=== PATIENT | female | born 1945 | race Caucasian/White ===

== ENCOUNTER 2017-05-23 21:39 | Emergency (ER) | payer MEDICARE, OTHER ==
--- NOTE | 2017-05-23 22:32 | ERPHSYRPT ---
- History of Present Illness Time Seen by Provider: 05/23/17 22:29 Source: patient Exam Limitations: no limitations Patient Subjective Stated Complaint: pt states her blood pressure has been elevated intermittently since last night. spb 170 at home Triage Nursing Assessment: pt alert and oriented, asnwers questions approp. sitting up ons danyell of bed, no distress noted. respirations nonlabored. pt ambulatory with steady gait noted. Physician History: This is 71-year-old white female she arrives with complaint of having a high blood pressure at home for 3 days. She states she's had occasional pain on the top of her head. She is really in no distress at this time she has no dizziness no movement disorders she is not vomiting no nausea. Past medical history includes a breast cancer. Past surgical history bilateral mastectomy. Social history patient denies tobacco alcohol or illicit drug use Timing/Duration: day(s) (3 days) Severity: mild Modifying Factors: Worsens With: cold therapy, eating, immobilization, medication, movement, rest, acetaminophen, ibuprofen, nothing Associated Symptoms: other (occasional pain on the top of her head), No nausea, No vomiting, No abdominal pain, No shortness of breath, No heartburn, No diaphoresis, No cough, No chills, No chest pain, No fever, No headaches, No loss of appetite, No malaise, No rash, No syncope, No seizure, No weakness Allergies/Adverse Reactions: No Known Drug Allergies Allergy (Verified 05/23/17 22:27) Hx Tetanus, Diphtheria Vaccination/Date Given: No (unsure) Hx Influenza Vaccination/Date Given: No Hx Pneumococcal Vaccination/Date Given: No Immunizations Up to Date: No - Review of Systems Constitutional: No Fever, No Chills Eyes: No Symptoms Ears, Nose, & Throat: No Symptoms Respiratory: No Cough, No Dyspnea Cardiac: No Chest Pain, No Edema, No Syncope Abdominal/Gastrointestinal: No Abdominal Pain, No Nausea, No Vomiting, No Diarrhea Genitourinary Symptoms: No Dysuria Musculoskeletal: No Symptoms, No Back Pain, No Neck Pain Skin: No Rash Neurological: No Dizziness, No Focal Weakness, No Sensory Changes Psychological: No Symptoms Endocrine: No Symptoms - Past Medical History Cardiac History: Hypertension Other Medical History: hx of breast ca - Past Surgical History Past Surgical History: Yes Gastrointestinal: Cholecystectomy Female Surgical History: Mastectomy Other Surgical History: bilat mastectomy - Social History Smoking Status: Former smoker Exposure to second hand smoke: No Drug Use: none Patient Lives Alone: Yes - Nursing Vital Signs Nursing Vital Signs: Initial Vital Signs Temperature 97.8 F 05/23/17 22:17 Pulse Rate 69 05/23/17 22:17 Respiratory Rate 16 05/23/17 22:17 Blood Pressure 170/101 05/23/17 22:17 O2 Sat by Pulse Oximetry 96 05/23/17 22:17 Pain Scale Pain Intensity 0 - Physical Exam General Appearance: no apparent distress, alert Eye Exam: PERRL/EOMI, eyes nml inspection Ears, Nose, Throat Exam: normal ENT inspection, TMs normal, pharynx normal, moist mucous membranes Neck Exam: normal inspection, non-tender, supple, full range of motion Respiratory Exam: normal breath sounds, lungs clear, No respiratory distress Cardiovascular Exam: regular rate/rhythm, normal heart sounds, normal peripheral pulses Gastrointestinal/Abdomen Exam: soft, normal bowel sounds, No tenderness, No mass Back Exam: normal inspection, normal range of motion, No CVA tenderness, No vertebral tenderness Extremity Exam: normal inspection, normal range of motion, pelvis stable Neurologic Exam: alert, oriented x 3, cooperative, recycling tech II-XII nml as tested, normal mood/affect, nml cerebellar function, nml station & gait, sensation nml, No motor deficits Skin Exam: normal color, warm, dry, No rash Lymphatic Exam: No adenopathy SpO2 Interpretation: normal (96%) SpO2: 96 Oxygen Delivery: Room Air - Course Nursing assessment & vital signs reviewed: Yes EKG Interpreted by Me: RATE, Sinus Rhythm, NORMAL AXIS, Other (EKG, normal sinus rhythm, 62 bpm, normal axis, no acute ST or T wave changes, normal EKG) Ordered Tests: Active Orders 24 hr Category Date Time Status EKG-ER Only STAT Care 05/23/17 22:29 Active IV Insertion STAT Care 05/23/17 22:29 Active CBC W DIFF Stat Lab 05/23/17 23:25 Completed CMP Stat Lab 05/23/17 23:25 Completed CULTURE,URINE Stat Lab 05/23/17 22:55 Received UA W/ MICROSCOPIC Stat Lab 05/23/17 22:55 Completed Medication Summary Discontinued Medications Generic Name Dose Route Start Last Admin Trade Name Freq PRN Reason Stop Dose Admin Hydrochlorothiazide 25 mg 05/24/17 00:47 Hydrodiuril 25 Mg PO 05/24/17 00:48 DAILY STA Lab/Rad Data: Laboratory Result Diagrams 05/23/17 23:25 05/23/17 23:25 Laboratory Results 05/23/17 05/23/17 05/23/17 Range/Units 23:25 23:25 22:55 WBC 5.6 (4.0-10.5) K/mm3 RBC 4.30 (4.1-5.4) M/mm3 Hgb 13.1 (12.0-16.0) gm/dl Hct 40.9 (35-47) % MCV 95.1 (78-100) fl MCH 30.5 (26-32) pg MCHC 32.0 (32-36) g/dl RDW 13.9 (11.5-14.0) % Plt Count 258 (150-450) K/mm3 MPV 9.2 (6-9.5) fl Gran % 54.2 (36.0-66.0) % Lymphocytes % 32.6 (24.0-44.0) % Monocytes % 10.7 (0.0-12.0) % Eosinophils % 2.1 (0.00-5.0) % Basophils % 0.4 (0.0-0.4) % Basophils # 0.02 (0-0.4) Sodium 141 (137-145) mmol/L Potassium 4.3 (3.5-5.1) mmol/L Chloride 103 (98-107) mmol/L Carbon Dioxide 29 (22-30) mmol/L Anion Gap 13.3 (5-15) MEQ/L BUN 18 H (7-17) mg/dL Creatinine 0.84 (0.52-1.04) mg/dL Estimated GFR > 60 ML/MIN Glucose 97 (74-106) mg/dL Calcium 9.0 (8.4-10.2) mg/dL Total Bilirubin 0.50 (0.2-1.3) mg/dL AST 30 (14-36) U/L ALT 26 (0-35) U/L Alkaline Phosphatase 71 (38-126) U/L Serum Total Protein 7.1 (6.3-8.2) g/dL Albumin 4.1 (3.5-5.0) g/dL Ur Collection Type CLEAN CATCH Urine Color YELLOW (YELLOW) Urine Appearance CLEAR (CLEAR) Urine pH 6.0 (5-6) Ur Specific [place] 1.015 (1.005-1.025) Urine Protein NEGATIVE (Negative) Urine Ketones NEGATIVE (NEGATIVE) Urine Blood NEGATIVE (0-5) Bk/ul Urine Nitrite NEGATIVE (NEGATIVE) Urine Bilirubin NEGATIVE (NEGATIVE) Urine Urobilinogen NORMAL (0-1) mg/dL Ur Leukocyte Esterase 1+ (NEGATIVE) Urine Microscopic WBC 15-25 (0-5) /HPF Ur Epithelial Cells RARE (FEW) /HPF Urine Bacteria RARE (NEGATIVE) /HPF Urine Culture Reflexed YES (NO) Urine Glucose NEGATIVE (NEGATIVE) mg/dL Specimen Received 05/23/17 2300 - Progress Progress: improved Progress Note: 05/24/17 00:51 71-year-old white female arrives with complaint that her blood pressure is been up for the last several days she states she occasionally has pain on the top of her head. I have done laboratory work on this lady EKG normal sinus rhythm [address] or T wave changes CBC is normal chemistry essentially normal. Urine shows 15-25 white cells per high-power field nitrite is negative. Patient's blood pressure has been running around 172 over high 90s for the diastolic. Last pressure was 102 diastolic. Patient in no acute distress. Will go ahead and place patient on hydrochlorothiazide 25 mg orally daily give the first dose today. I have offered the patient a CT of her head she does not want this. I have also offered to place patient on antibiotics secondary to the white cells in her urine she says she does not want placed on antibiotics Will go ahead and culture the patient's urine and if significant growth occurs she will be contacted and will need to be placed on an antibiotic. Patient has been informed that she needs to contact her family doctor tomorrow and schedule an appointment for follow-up on her blood pressures. 05/24/17 00:56 - Departure Time of Disposition: 00:54 Departure Disposition: Home Clinical Impression: Hypertension Qualifiers: Hypertension type: essential hypertension Qualified Code(s): I10 - Essential ( primary) hypertension Condition: Fair Critical Care Time: No Referrals: CLARISSA VALDIVIA MD [Primary Care Provider] - Additional Instructions: Return home. Rest. Hydrochlorothiazide 25 mg orally daily. Follow-up with your family doctor call tomorrow and arrange follow-up. Return for acute distress or for severe symptoms. He had some white blood cells in her urine cultures are pending. You will be contacted if you have significant growth. Return for acute distress or for severe symptoms. Prescriptions: Hydrochlorothiazide 25 mg [hydroDIURIL 25 MG] 25 mg PO DAILY #10 tablet
[2017-05-23 23:39] LABS: BASOPHIL % 0.4 % (0.0-0.4); Basophil (Absolute #) 0.02 (0-0.4); Eosinophil % 2.1 % (0.00-5.0); Eosinophil (Absolute #) 0.12 (0-0.5); Granulocyte Absolute (ANC) 3.04 (1.4-6.9); Granulocytes % 54.2 % (36.0-66.0); Hematocrit 40.9 % (35-47); Hemoglobin 13.1 gm/dl (12.0-16.0); Lymphocyte (Absolute #) 1.83 (1.0-4.6); Lymphocytes % 32.6 % (24.0-44.0); Mean Cell Volume 95.1 fl (78-100); Mean Corpuscular Hemoglobin 30.5 pg (26-32); Mean Platelet Volume 9.2 fl (6-9.5); Monocytes % 10.7 % (0.0-12.0); Platelet Count 258 K/mm3 (150-450); Red Cell Distribution Width 13.9 % (11.5-14.0); White Blood Count 5.6 K/mm3 (4.0-10.5)
[2017-05-23 23:57] LABS: ALBUMIN 4.1 g/dL (3.5-5.0); ALKALINE PHOSPHATASE 71 U/L (38-126); ANION GAP 13.3 MEQ/L (5-15); BLOOD UREA NITROGEN 18 mg/dL (7-17); CHLORIDE 103 mmol/L (98-107); Carbon Dioxide 29 mmol/L (22-30); Creatinine 1 0.84 mg/dL (0.52-1.04); Glucose 97 mg/dL (74-106); Potassium 4.3 mmol/L (3.5-5.1); SGOT/AST 30 U/L (14-36); SGPT/ALT 26 U/L (0-35); SODIUM 141 mmol/L (137-145); Total Protein 7.1 g/dL (6.3-8.2)
[2017-05-24 00:06] VITALS: O2SAT 96
[2017-05-24 00:33] LABS: Appearance CLEAR (CLEAR); Bilirubin NEGATIVE (NEGATIVE); Blood NEGATIVE Ery/ul (0-5); Glucose NEGATIVE (NEGATIVE); Ketones NEGATIVE (NEGATIVE); Leukocyte Esterase 1+ (NEGATIVE); Nitrite NEGATIVE (NEGATIVE); Protein,Urine Dip NEGATIVE (Negative); Specific Gravity 1.015 (1.005-1.025); Urobilinogen NORMAL mg/dL (0-1); WBC 15-25 /HPF (0-5)
[2017-05-24 00:34] LABS: Bacteria RARE /HPF (NEGATIVE); Epithelial Cells RARE /HPF (FEW)
[2017-05-24] MEDS ORDERED: hydroDIURIL 25 MG PO STA (00:47)
[2017-05-24 01:04] VITALS: BP 172/93; PULSE 65
== END 2017-05-24 01:32 | disposition home or self-care (01) ==
LOC: ED 21:39
DX: I10 Essential (primary) hypertension (principal); R51 Headache; R82.99 Other abnormal findings in urine
CPT/HCPCS: 36000; 36415; 80053; 81000; 81002; 85025; 87086; 93005; 99283; A9270-GY

== ENCOUNTER 2021-01-05 13:01 | Emergency (ER) | payer MEDICARE, OTHER ==
--- NOTE | 2021-01-05 13:40 | ERPHSYRPT ---
- History of Present Illness Time Seen by Provider: 01/05/21 13:20 Source: patient Exam Limitations: no limitations Patient Subjective Stated Complaint: Patient states she has been having high blood pressure readings on her home monitor at home for the past few days. She i ndicates that she took herself off of her coreg and HCTZ about a month ago because her B/P had been doing so well but now it is running high again. She phoned her biomathematician, Dr. Casillas today and was instructed to take her HCTZ. She states she has an appointment with Dr. Casillas next week for follow-up. Also states she gets dizzy when rising. Triage Nursing Assessment: Patient ambulated back to ED. She is alert and oriented and able to answer questions appropriately. No SOB noted. Patient denies chest pain or headache. PERRL. B/P reading WNL upon arrival to ED. Regular heart rate. [place] WNL without difficulties. Physician History: Patient is a 75-year-old female presents to our ED for evaluation of elevated blood pressure per home reading and intermittent dizziness. Patient states that she has a history of high blood pressure. Patient has been checking her blood pressure regularly. Last month she observed her blood pressure to continually be normal. Patient decided to stop taking her Coreg and hydrochlorothiazide 1 month ago as she was feeling well and did not think it was no longer necessary. However patient checked her blood pressure last night and found it to be elevated at a systolic of 200. Blood pressure was elevated this morning as well. She called her biomathematician who advised her to take her hydrochlorothiazide. Patient is here due to her high blood pressure and intermittent dizziness. No chest pain. No shortness of breath. No nausea vomiting or diaphoresis. No numbness tingling or weakness. No headache. Symptoms are mild to moderate in intensity. No specific worsening improving factors. Patient voices no other complaints or concerns at this time. Timing/Duration: yesterday Severity: moderate Modifying Factors: Improves With: movement (Movement cause patient to feel mildly dizzy) Associated Symptoms: other (Dizziness), No shortness of breath, No diaphoresis, No cough, No headaches, No syncope, No seizure, No weakness Allergies/Adverse Reactions: No Known Drug Allergies Allergy (Verified 01/05/21 13:30) Hx Tetanus, Diphtheria Vaccination/Date Given: No (unsure) Hx Influenza Vaccination/Date Given: No Hx Pneumococcal Vaccination/Date Given: No Immunizations Up to Date: Yes Travel Risk - International Travel Have you traveled outside of the country in past 3 weeks: No - Coronavirus Screening Are you exhibiting any of the following symptoms?: No Close contact with a COVID-19 positive Pt in past 14-21 Days: No - Vaccine Status Have you recieved a Covid-19 vaccination: No - Review of Systems Constitutional: No Symptoms, No Fever, No Chills Eyes: No Symptoms Ears, Nose, & Throat: No Symptoms Respiratory: No Symptoms, No Cough, No Dyspnea Cardiac: No Symptoms, No Chest Pain, No Edema, No Syncope Abdominal/Gastrointestinal: No Symptoms, No Abdominal Pain, No Nausea, No Vomiting, No Diarrhea Genitourinary Symptoms: No Symptoms, No Dysuria Musculoskeletal: No Symptoms, No Back Pain, No Neck Pain Skin: No Symptoms, No Rash Neurological: No Symptoms, No Dizziness, No Focal Weakness, No Sensory Changes Psychological: No Symptoms Endocrine: No Symptoms Hematologic/Lymphatic: No Symptoms Immunological/Allergic: No Symptoms All Other Systems: Reviewed and Negative - Past Medical History Pertinent Past Medical History: Yes Neurological History: No Pertinent History Cardiac History: Hypertension Respiratory History: No Pertinent History Endocrine Medical History: Other Musculoskeletal History: Osteoarthritis Other Medical History: BREAST CA WITH DOUBLE MASTECTOMY 2011. DID NOT DO ANY CHEMO AT THAT TIME. CANCER RETURNED 5 YEARS LATERS. HAS BEEN SEEING DR. LEON FOR MONTHLY INJECTIONS. - Past Surgical History Past Surgical History: Yes Gastrointestinal: Cholecystectomy Female Surgical History: Mastectomy Other Surgical History: bilat mastectomy - Social History Smoking Status: Former smoker Exposure to second hand smoke: No Drug Use: none Patient Lives Alone: Yes - Female History Hx Now: No - Nursing Vital Signs Nursing Vital Signs: Initial Vital Signs Temperature 98 F 01/05/21 13:13 Pulse Rate 72 01/05/21 13:13 Respiratory Rate 21 01/05/21 13:13 Blood Pressure 154/72 01/05/21 13:13 O2 Sat by Pulse Oximetry 96 01/05/21 13:13 Pain Scale Pain Intensity 0 - Physical Exam General Appearance: no apparent distress, alert Eye Exam: PERRL/EOMI, eyes nml inspection Ears, Nose, Throat Exam: normal ENT inspection, TMs normal, pharynx normal, moist mucous membranes Neck Exam: normal inspection, non-tender, supple, full range of motion Respiratory Exam: normal breath sounds, lungs clear, airway intact, No respiratory distress Cardiovascular Exam: regular rate/rhythm, normal heart sounds, normal peripheral pulses Gastrointestinal/Abdomen Exam: soft, normal bowel sounds, No tenderness, No mass Back Exam: normal inspection, normal range of motion, No CVA tenderness, No vertebral tenderness Extremity Exam: normal inspection, normal range of motion, pelvis stable Neurologic Exam: alert, oriented x 3, cooperative, normal mood/affect, nml cerebellar function, nml station & gait, sensation nml, No motor deficits Skin Exam: normal color, warm, dry, No rash Lymphatic Exam: No adenopathy SpO2 Interpretation: normal SpO2: 96 O2 Delivery: Room Air - Course Nursing assessment & vital signs reviewed: Yes EKG Interpreted by Me: RATE (66), Sinus Rhythm, NORMAL AXIS, NORMAL INTERVALS - CT Exams Head CT Interpretation: Tele-radiologist Report (Age-appropriate global atrophy and mild periventricular degenerative microischemia bilaterally. No acute intracranial hemorrhage abnormal extra-axial fluid collection or mass-effect. Fourth ventricle is midline without hydrocephalus. Faust-white matter differentiation preserved. Nonacute senile b) Ordered Tests: Active Orders 24 hr Category Date Time Status Centrifugal Casting Machine Operator STAT Care 01/05/21 13:35 Active EKG-ER Only STAT Care 01/05/21 13:34 Active IV Insertion STAT Care 01/05/21 13:34 Active Pulse Oximetry (ED) STAT Care 01/05/21 13:34 Active HEAD WITHOUT CONTRAST [CT] Stat Exams 01/05/21 13:36 Completed CBC W DIFF Stat Lab 01/05/21 13:34 Completed CMP Stat Lab 01/05/21 13:34 Completed CULTURE,URINE Stat Lab 01/05/21 14:21 Received TROPONIN Q3H Lab 01/05/21 13:45 Completed TROPONIN Q3H Lab 01/05/21 15:40 Completed TROPONIN Q3H Lab 01/05/21 19:45 Ordered TROPONIN Q3H Lab 01/05/21 22:45 Ordered TROPONIN Q3H Lab 01/06/21 01:45 Ordered UA W/RFX UR CULTURE Stat Lab 01/05/21 14:21 Completed Medication Summary Discontinued Medications Generic Name Dose Route Start Last Admin Trade Name Freq PRN Reason Stop Dose Admin Ceftriaxone Sodium/Dextrose 1 g in 50 mls @ 100 mls/hr 01/05/21 15:32 01/05/21 16:15 Rocephin 1 Gm-D5w 50 Ml Bag IV 01/05/21 16:01 Infused STAT STA Infusion Ceftriaxone Sodium/Dextrose Confirm 01/05/21 15:44 Rocephin 1 Gm-D5w 50 Ml Bag Administered 01/05/21 15:45 Dose 1 g in 50 mls @ ud IV .STK-MED ONE Lab/Rad Data: Laboratory Result Diagrams 01/05/21 13:34 01/05/21 13:34 Laboratory Results 01/05/21 01/05/21 01/05/21 Range/Units 15:40 14:21 13:45 WBC (4.0-10.5) K/mm3 RBC (4.1-5.4) M/mm3 Hgb (12.0-16.0) gm/dl Hct (35-47) % MCV (78-100) fl MCH (26-32) pg MCHC (32-36) g/dl RDW (11.5-14.0) % Plt Count (150-450) K/mm3 MPV (7.5-11.0) fl Gran % (36.0-66.0) % Eos # (Auto) (0-0.5) Absolute Lymphs (auto) (1.0-4.6) Absolute Monos (auto) (0.0-1.3) Lymphocytes % (24.0-44.0) % Monocytes % (0.0-12.0) % Eosinophils % (0.00-5.0) % Basophils % (0.0-0.4) % Absolute Granulocytes (1.4-6.9) Basophils # (0-0.4) Sodium (137-145) mmol/L Potassium (3.5-5.1) mmol/L Chloride (98-107) mmol/L Carbon Dioxide (22-30) mmol/L Anion Gap (5-15) MEQ/L BUN (7-17) mg/dL Creatinine (0.52-1.04) mg/dL Estimated GFR ML/MIN Glucose (74-106) mg/dL Calcium (8.4-10.2) mg/dL Total Bilirubin (0.2-1.3) mg/dL AST (14-36) U/L ALT (0-35) U/L Alkaline Phosphatase (38-126) U/L Troponin I < 0.012 < 0.012 (0.000-0.034) ng/mL Serum Total Protein (6.3-8.2) g/dL Albumin (3.5-5.0) g/dL Urine Color STRAW (YELLOW) Urine Appearance CLEAR (CLEAR) Urine pH 5.0 (5-6) Ur Specific [place] 1.012 (1.005-1.025) Urine Protein NEGATIVE (Negative) Urine Ketones NEGATIVE (NEGATIVE) Urine Blood NEGATIVE (0-5) Bk/ul Urine Nitrite NEGATIVE (NEGATIVE) Urine Bilirubin NEGATIVE (NEGATIVE) Urine Urobilinogen NEGATIVE (0-1) mg/dL Ur Leukocyte Esterase MODERATE (NEGATIVE) Urine WBC (Auto) 26-50 (0-5) /HPF Urine RBC (Auto) NONE (0-2) /HPF Urine Bacteria (Auto) NONE (NEGATIVE) /HPF Urine Mucus (Auto) SLIGHT (NEGATIVE) /HPF Urine Culture Reflexed YES (NO) Urine Glucose NEGATIVE (NEGATIVE) mg/dL 01/05/21 01/05/21 Range/Units 13:34 13:34 WBC 6.1 (4.0-10.5) K/mm3 RBC 4.31 (4.1-5.4) M/mm3 Hgb 13.1 (12.0-16.0) gm/dl Hct 41.5 (35-47) % MCV 96.3 (78-100) fl MCH 30.4 (26-32) pg MCHC 31.6 L (32-36) g/dl RDW 13.5 (11.5-14.0) % Plt Count 276 (150-450) K/mm3 MPV 8.9 (7.5-11.0) fl Gran % 61.2 (36.0-66.0) % Eos # (Auto) 0.13 (0-0.5) Absolute Lymphs (auto) 1.68 (1.0-4.6) Absolute Monos (auto) 0.54 (0.0-1.3) Lymphocytes % 27.5 (24.0-44.0) % Monocytes % 8.9 (0.0-12.0) % Eosinophils % 2.1 (0.00-5.0) % Basophils % 0.3 (0.0-0.4) % Absolute Granulocytes 3.73 (1.4-6.9) Basophils # 0.02 (0-0.4) Sodium 140 (137-145) mmol/L Potassium 4.2 (3.5-5.1) mmol/L Chloride 101 (98-107) mmol/L Carbon Dioxide 30 (22-30) mmol/L Anion Gap 12.8 (5-15) MEQ/L BUN 15 (7-17) mg/dL Creatinine 0.74 (0.52-1.04) mg/dL Estimated GFR > 60.0 ML/MIN Glucose 157 H (74-106) mg/dL Calcium 9.4 (8.4-10.2) mg/dL Total Bilirubin 0.60 (0.2-1.3) mg/dL AST 29 (14-36) U/L ALT 20 (0-35) U/L Alkaline Phosphatase 111 (38-126) U/L Troponin I (0.000-0.034) ng/mL Serum Total Protein 7.4 (6.3-8.2) g/dL Albumin 4.4 (3.5-5.0) g/dL Urine Color (YELLOW) Urine Appearance (CLEAR) Urine pH (5-6) Ur Specific [place] (1.005-1.025) Urine Protein (Negative) Urine Ketones (NEGATIVE) Urine Blood (0-5) Bk/ul Urine Nitrite (NEGATIVE) Urine Bilirubin (NEGATIVE) Urine Urobilinogen (0-1) mg/dL Ur Leukocyte Esterase (NEGATIVE) Urine WBC (Auto) (0-5) /HPF Urine RBC (Auto) (0-2) /HPF Urine Bacteria (Auto) (NEGATIVE) /HPF Urine Mucus (Auto) (NEGATIVE) /HPF Urine Culture Reflexed (NO) Urine Glucose (NEGATIVE) mg/dL - Progress Progress: improved Progress Note: Patient reassessed. She is currently asymptomatic. She is no longer dizzy. CT head negative. Laboratory work-up negative. Troponin negative x2. EKG normal sinus rhythm. Patient's blood pressure is somewhat elevated however this is because she stopped taking her blood pressure medications. Case discussed with her primary care doctor Dr. Valdivia. He advises patient to resume all of her home medications as previous. He will see patient early next week either at [facility] or [place] office. Plan of care discussed with patient. Patient states she is eager to go home. She voices no other complaints concerns at this time. She agrees to follow-up with and to resume her home meds as previous. Portions of this note were created with voice recognition technology. There may be grammatical, spelling, punctuation or sound alike errors 01/05/21 17:[address] Fer Will see patient in: office Counseled pt/family regarding: lab results, diagnosis, need for follow-up, rad results - Departure Departure Disposition: Home Clinical Impression: UTI (urinary tract infection), Noncompliance with medication regimen, Hypertension Condition: Stable Critical Care Time: No Referrals: CLARISSA VALDIVIA MD [Primary Care Provider] - Follow up/PCP as directed Additional Instructions: Discharge/Care Plan GUIDO BUCHANAN was seen on 01/05/21 in the Emergency Room. The patient was counseled regarding Diagnosis,Lab results, Imaging studies, need for follow up and when to return to the Emergency Room. Prescriptions given: Discharge Note I have spoken with the patient and/or caregivers. I have explained the patient's condition, diagnosis and treatment plan based on the information available to me at this time. I have answered the patient's and/or caregiver's questions and addressed any concerns. The patient and/or caregivers have as good understanding of the patient's diagnosis, condition and treatment plan as can be expected at this point. The vital signs have been stable. The patient's condition is stable and appropriate for discharge from the emergency department. The patient will pursue further outpatient evaluation with the primary care physician or other designated or consulting physician as outlined in the discharge instructions. The patient and/or caregivers are agreeable to this plan of care and follow-up instructions have been explained in detail. The patient and/or caregivers have received these instruction. The patient/and or caregivers are aware that any significant change in condition or worsening of symptoms should prompt an immediate return to this or the closest emergency department or call 911. Prescriptions: Nitrofurantoin Macro 100 mg [Macrobid 100MG Capsule] 100 mg PO BID 7 Days #14 cap
--- NOTE | 2021-01-05 14:05 | XRAY ---
Indication: Dizziness. High blood pressure. Multiple contiguous axial images obtained through the head without contrast. Comparison: None Age-appropriate global atrophy and mild periventricular degenerative micro-ischemia bilaterally. No acute intracranial hemorrhage, abnormal extra-axial fluid collection, or mass effect. Fourth ventricle is midline without hydrocephalus. Faust-white matter differentiation preserved. Bony calvarium intact. Visualized paranasal sinuses and mastoid air cells are clear. Impression: Nonacute senile brain.
[2021-01-05 14:31] LABS: Absolute Neutrophil Ct (ANC) 3.73 (1.4-6.9); BASOPHIL % 0.3 % (0.0-0.4); Basophil (Absolute #) 0.02 (0-0.4); Eosinophil % 2.1 % (0.00-5.0); Eosinophil (Absolute #) 0.13 (0-0.5); Hematocrit 41.5 % (35-47); Hemoglobin 13.1 gm/dl (12.0-16.0); Lymphocyte (Absolute #) 1.68 (1.0-4.6); Lymphocytes % 27.5 % (24.0-44.0); Mean Cell Volume 96.3 fl (78-100); Mean Corpuscular Hemoglobin 30.4 pg (26-32); Mean Corpuscular Hgb Concent. 31.6 g/dl (32-36); Mean Platelet Volume 8.9 fl (7.5-11.0); Monocyte (Absolute #) 0.54 (0.0-1.3); Monocytes % 8.9 % (0.0-12.0); Neutrophil % 61.2 % (36.0-66.0); Platelet Count 276 K/mm3 (150-450); Red Blood Count 4.31 M/mm3 (4.1-5.4); Red Cell Distribution Width 13.5 % (11.5-14.0); White Blood Count 6.1 K/mm3 (4.0-10.5)
[2021-01-05 14:37] LABS: Appearance CLEAR (CLEAR); Bilirubin NEGATIVE (NEGATIVE); Blood NEGATIVE Ery/ul (0-5); Glucose NEGATIVE (NEGATIVE); Ketones NEGATIVE (NEGATIVE); Leukocyte Esterase MODERATE (NEGATIVE); Mucus SLIGHT /HPF (NEGATIVE); Nitrite NEGATIVE (NEGATIVE); Protein,Urine Dip NEGATIVE (Negative); Specific Gravity 1.012 (1.005-1.025); Urobilinogen NEGATIVE mg/dL (0-1); WBC 26-50 /HPF (0-5)
[2021-01-05 14:47] LABS: ALBUMIN 4.4 g/dL (3.5-5.0); ALKALINE PHOSPHATASE 111 U/L (38-126); ANION GAP 12.8 MEQ/L (5-15); BLOOD UREA NITROGEN 15 mg/dL (7-17); CHLORIDE 101 mmol/L (98-107); Calcium 9.4 mg/dL (8.4-10.2); Carbon Dioxide 30 mmol/L (22-30); Creatinine 1 0.74 mg/dL (0.52-1.04); EST GLOMERULAR FILTRATION RATE > 60.0 ML/MIN; Glucose 157 mg/dL (74-106); Potassium 4.2 mmol/L (3.5-5.1); SGOT/AST 29 U/L (14-36); SGPT/ALT 20 U/L (0-35); SODIUM 140 mmol/L (137-145); Total Protein 7.4 g/dL (6.3-8.2)
[2021-01-05 15:32] VITALS: O2SAT 96
[2021-01-05] MEDS ORDERED: ROCEPHIN 1 Gm-D5w 50 ml Bag** 1 G/50 ML IVPB IV STA (15:32)
[2021-01-05] MEDS ORDERED: ROCEPHIN 1 Gm-D5w 50 ml Bag** 1 G/50 ML IVPB IV ONE (15:44)
[2021-01-05 17:22] VITALS: BP 152/94; PULSE 70
== END 2021-01-05 17:36 | disposition home or self-care (01) ==
LOC: ED 13:01
DX: N39.0 Urinary tract infection, site not specified (principal); Z91.14 Patient's other noncompliance with medication regimen; I10 Essential (primary) hypertension
CPT/HCPCS: 36000; 36415; 70450; 80053; 81001; 84484; 85025; 87086; 93005; 93041; 94760; 99284; J0696

== ENCOUNTER 2023-07-07 18:56 | Emergency (ER) | payer MEDICARE, OTHER ==
--- NOTE | 2023-07-07 19:13 | ERPHSYRPT ---
- History of Present Illness Time Seen by Provider: 07/07/23 19:11 Source: patient, family Exam Limitations: no limitations Physician History: This is a 77-year-old white female patient who has had a breast cancer and underwent bilateral modified radical mastectomy and has cancerous lesions on her skin. The wound on the chest wall today began bleeding earlier. The bleeding has stopped on arrival to the emergency department. She has no pain. There is no evidence of cellulitis. She has not had a fever. She is diabetic and does have a history of hypertension. Timing/Duration: today Severity: mild (Not bleeding at all at the time of this examination) Location: other (Chest wall in the area of her modified radical mastectomy scar) Possible Causes: other (Possible cancerous skin lesions) Associated Symptoms: change in skin texture Allergies/Adverse Reactions: No Known Drug Allergies Allergy (Verified 07/07/23 19:09) Home Medications: Empagliflozin [Jardiance] 25 mg PO DAILY 07/07/23 [History] Hx Tetanus, Diphtheria Vaccination/Date Given: No (unsure) Hx Influenza Vaccination/Date Given: No Hx Pneumococcal Vaccination/Date Given: No Travel Risk - International Travel Have you traveled outside of the country in past 3 weeks: No - Emerging Infectious Disease Are you exhibiting symptoms associated with any current EIDs: No - Review of Systems Constitutional: No Symptoms Eyes: No Symptoms Ears, Nose, & Throat: No Symptoms Respiratory: No Symptoms Cardiac: No Symptoms Abdominal/Gastrointestinal: No Symptoms, Appetite Changes Genitourinary Symptoms: No Symptoms Musculoskeletal: No Symptoms Skin: Skin Lesions (Presumed cancers in the area of the post modified radical mastectomy scar) Neurological: No Symptoms Psychological: No Symptoms Endocrine: No Symptoms Hematologic/Lymphatic: No Symptoms Immunological/Allergic: No Symptoms All Other Systems: Reviewed and Negative - Past Medical History Pertinent Past Medical History: Yes Neurological History: No Pertinent History Cardiac History: Hypertension Respiratory History: No Pertinent History Endocrine Medical History: Other Musculoskeletal History: Osteoarthritis Other Medical History: BREAST CA WITH DOUBLE MASTECTOMY 2011. DID NOT DO ANY CHEMO AT THAT TIME. CANCER RETURNED 5 YEARS LATERS. HAS BEEN SEEING DR. LEON FOR MONTHLY INJECTIONS. - Past Surgical History Past Surgical History: Yes Gastrointestinal: Cholecystectomy Female Surgical History: Mastectomy Other Surgical History: bilat mastectomy - Social History Smoking Status: Former smoker Exposure to second hand smoke: No Drug Use: none Patient Lives Alone: Yes - Nursing Vital Signs Nursing Vital Signs: Initial Vital Signs Temperature 97.5 F 07/07/23 19:11 Pulse Rate 76 07/07/23 19:11 Respiratory Rate 14 07/07/23 19:11 Blood Pressure 164/86 07/07/23 19:11 O2 Sat by Pulse Oximetry 93 L 07/07/23 19:11 Pain Scale Pain Intensity 0 - Physical Exam General Appearance: no apparent distress, alert, obese Eye Exam: PERRL/EOMI, eyes nml inspection Ears, Nose, Throat Exam: normal ENT inspection, moist mucous membranes Neck Exam: normal inspection, non-tender, supple, full range of motion Respiratory Exam: normal breath sounds, lungs clear, airway intact, No chest tenderness, No respiratory distress Cardiovascular Exam: regular rate/rhythm, normal heart sounds, normal peripheral pulses Gastrointestinal/Abdomen Exam: soft, normal bowel sounds, No tenderness Pelvic Exam: not done Rectal Exam: not done Back Exam: normal inspection, normal range of motion, No CVA tenderness, No vertebral tenderness Extremity Exam: normal inspection, normal range of motion, pelvis stable Neurologic Exam: alert, oriented x 3, cooperative, puppy trainer II-XII nml as tested, normal mood/affect, nml cerebellar function, nml station & gait Skin Exam: other (No cellulitis. No tenderness. No active bleeding. Presumed cancerous skin lesions in the area of postmastectomy healing scar) - Course Nursing assessment & vital signs reviewed: Yes - Progress Progress: improved Progress Note: 07/07/23 19:53 My medical decision making and the assignment of low complexity to the this patient's medical issue today is based on review of the patient's past medical history, review of the patient's medication list, review the patient drug allergy list, history of present illness and physical findings on examination. No laboratory radiographic studies are necessary in this patient. There is no active bleeding at this time. Patient does not require antibiotic treatment this time. We will use Surgicel to the site followed by 4 x 4 gauze and a pressure dressing to be left in place for 24 hours. We will provide the patient with Surgicel so she can change the dressing in 24 hours. Counseled pt/family regarding: diagnosis, need for follow-up Medical Desision Making - Independent Historian Additional History obtained from: Family - Diagnostic Testing Diagnostic test were ordered, analyzed, and reviewed by me: No - Risk of complications Minimal Risk: Minimal risk of morbidity - Departure Departure Disposition: Home Clinical Impression: Visit for wound check Condition: Stable Critical Care Time: No Referrals: ANNEL WHITING DO [Primary Care Provider] - Follow up/PCP as directed Additional Instructions: Keep the current dressing in place for 24 hours. After 24 hours, remove the top dressing. Enter the shower and allow the soapy water to run over the wound site. Do not pull off the Surgicel material but that it moisten and fall off in the shower. Blot dry the wound to hair dry the site. Do not rub the site. This rubbing may start up bleeding. After the wound is sufficiently dry, placed that Surgicel material and cover with a pressure dressing as instructed. Call your oncologist in the morning of 07/09/2023 to make them aware of what occurred today and to obtain further instructions and management.
[2023-07-07 19:20] VITALS: RESP 14; TEMP 97.5
[2023-07-07 20:30] VITALS: BP 142/80; PULSE 77; O2SAT 94
== END 2023-07-07 20:44 | disposition home or self-care (01) ==
LOC: ED 18:56
DX: Z48.00 Encounter for change or removal of nonsurgical wound dressing (principal); E11.9 Type 2 diabetes mellitus without complications; I10 Essential (primary) hypertension; Z79.84 Long term (current) use of oral hypoglycemic drugs
CPT/HCPCS: 99282